=== PATIENT | female | born 1950 | race Caucasian/White ===

== ENCOUNTER 2023-09-08 23:17 | Emergency (ER) | payer OTHER ==
[~2023-09-08] VITALS: Ht 172.7 cm; Wt 77.1 kg
[~2023-09-08 23:17] MED LIST: LEVO500T31 PO
[2023-09-09] VITALS (8 sets, daily range): BP systolic 104–130; BP diastolic 48–60; PULSE 100–107; RESP 14–17; TEMP 97.7–98.9; O2SAT 98
[2023-09-09] MEDS ORDERED: ACETAMINOPHEN 325 MG TAB PO ONE (01:00)
[2023-09-09] MEDS ORDERED: PANTOPRAZOLE 40 MG/10 ML VIAL INJ IV ONE ×2 (01:00→04:15)
[2023-09-09] MEDS ORDERED: SODIUM CHLORIDE 0.9% 1,000 ML IVB ONE (01:00)
[2023-09-09] MEDS ORDERED: ONDANSETRON HCL 4 MG/2 ML VIAL IV ONE (01:00)
[2023-09-09 02:17] LABS: Alanine Aminotransferase 18 U/L (7-40); Albumin 3.4 g/dL (3.2-4.8); Alkaline Phosphatase 44 U/L (46-116); Anion Gap 6 (5-15); Aspartate Aminotransferase 18 U/L (13-40); BUN/Creatinine Ratio 40.2 (10.0-20.0); Blood Alcohol 3.7 mg/dL (<10); Blood Urea Nitrogen 49 mg/dL (9-23); Calcium 9.2 mg/dL (8.7-10.4); Carbon Dioxide 29 mmol/L (20-30); Chloride 106 mmol/L (98-107); Glucose 225 mg/dL (74-106); Lactic Acid w/Reflex 3.8 mmol/L (0.4-2.0); Lipase 152 U/L (12-53); Magnesium 2.2 mg/dL (1.6-2.6); Potassium 4.6 mmol/L (3.5-5.1); Sodium 141 mmol/L (136-145)
[2023-09-09 02:18] LABS: Bilirubin, Total 1.1 mg/dL (0.2-1.0); Total Protein 5.4 g/dL (5.7-8.2)
[2023-09-09 02:25] LABS: Basophils # (auto) 0.1 10 ^3/uL (0-0.2); Eosinophils # (auto) 0.1 10 ^3/uL (0-0.8); Monocytes # (auto) 0.6 10 ^3/uL (0-1.3); Neutrophils # (auto) 5.6 10 ^3/uL (1.6-8.6)
[2023-09-09 02:27] LABS: Basophils % (auto) 1.3 % (0.0-2.0); Eosinophils % (auto) 1.6 % (0.0-7.0); Hematocrit 15.3 % (36.0-46.0); Lymphocytes # (auto) 1.1 10 ^3/uL (0.4-5.4); Lymphocytes % (auto) 14.9 % (10.0-50.0); Mean Corpuscular Hemoglobin 36.1 pg (28.0-32.0); Mean Corpuscular Volume 98.8 fL (80.0-100.0); Monocytes % (auto) 7.9 % (0.0-12.0); Neutrophils % (auto) 74.3 % (37.0-80.0); Nucleated Red Blood Cells % 0.1 %; Red Blood Cells 1.55 10^6/uL (4.0-5.20); Red Cell Distribution Width 14.5 % (11.8-14.3); White Blood Cell 7.6 10^3/uL (4.4-10.8)
[2023-09-09 02:38] LABS: Mean Corpuscular Hgb Conc. 36.5 g/dL (32.0-36.0)
[2023-09-09 02:39] LABS: Hemoglobin 5.6 g/dL (12.2-16.2)
[2023-09-09 02:49] LABS: INR 1.22 (0.9-1.15); Partial Thromboplastin Time 21.5 SEC (24.5-34.5); Prothrombin Time 12.6 sec (9.3-11.8)
[2023-09-09] MEDS ORDERED: SODIUM CHLORIDE 0.9% 2,300 ML IV ONE (03:00)
[2023-09-09] MEDS ORDERED: PANTOPRAZOLE 80 MG in SODIUM CHL 0.9% 100 ML IV ONE (03:00)
[2023-09-09] MEDS ORDERED: VANCOMYCIN PER PHARMACY 0 MG IV SCH (03:00)
[2023-09-09] MEDS ORDERED: ACETAMINOPHEN 325 MG TAB PO PRN (03:00)
[2023-09-09 03:53] LABS: % Iron Saturation 9.8 % (15-50)
[2023-09-09] MEDS ORDERED: VANCOMYCIN 1GM/250ML 250 ML IV ONE ×2 (04:00→12:15)
[2023-09-09 04:14] LABS: INR 1.52 (0.9-1.15); Partial Thromboplastin Time 27.5 SEC (24.5-34.5); Prothrombin Time 15.5 sec (9.3-11.8)
[2023-09-09] MEDS: PIPERACILLIN-TAZOB 3.375GM 100 ML IV SCH ×2 (09:06→13:28)
[2023-09-09 09:45] LABS: Urine Bacteria NONE SEEN /hpf (None Seen); Urine Blood Negative /uL (Negative); Urine Clarity Clear (Clear); Urine Protein, UAD Negative (Negative); Urine Specific Gravity 1.036 (1.001-1.035); Urine Urobilinogen Normal (Negative); Urine WBC <1 /hpf (0 - 5)
[2023-09-09 09:49] LABS: Amphetamine Screen, Urine Neg (NEGATIVE); Barbiturate Scree,Urine Neg (NEGATIVE); Benzodiazephine Screen, Urine Neg (NEGATIVE); Cannabinoid Screen, Urine Neg (NEGATIVE); Cocaine Screen, Urine Neg (NEGATIVE); Opiate Scree,Urine Neg (NEGATIVE); Phencyclidine Screen, Urine Neg (NEGATIVE)
[2023-09-09 09:51] LABS: Urine Color Straw (Yellow)
[2023-09-09 13:43] LABS: Folate (Folic Acid) 18.14 ng/mL (>5.38)
== END 2023-09-09 15:26 | disposition short-term general hospital (02) ==
LOC: EDUNIT# 23:17 → ER 23:17 → EDBD 23:17 → ER 09-09 15:26
DX: K92.2 Gastrointestinal hemorrhage, unspecified (principal); R55 Syncope and collapse; R42 Dizziness and giddiness; D64.9 Anemia, unspecified; A41.9 Sepsis, unspecified organism; C79.9 Secondary malignant neoplasm of unspecified site; E11.65 Type 2 diabetes mellitus with hyperglycemia; I10 Essential (primary) hypertension; E78.5 Hyperlipidemia, unspecified; Z91.148 Patient's other noncompliance with medication regimen for other reason; Z79.899 Other long term (current) drug therapy
CPT/HCPCS: 36415; 36430; 70450; 71045; 71260; 74177; 80053; 80307; 80320; 81001; 82553; 82607; 82728; 82746; 83540; 83550; 83605; 83615; 83690; 83735; 83880; 84443; 84484; 85025; 85045; 85384; 85610; 85730; 86850; 86900; 86901; 86920; 87040; 87086; 93005; 96361; 96365; 96366; 96367; 96375; 99291; C9113; J2405; J2543; J7030; P9016; Q9967

== ENCOUNTER 2023-09-26 00:37 | Inpatient (IN) | payer OTHER ==
[~2023-09-26] VITALS: Ht 162.6 cm; Wt 101.6 kg
[2023-09-26] VITALS (13 sets, daily range): BP systolic 77–104; BP diastolic 40–58; PULSE 104–124; RESP 12–24; TEMP 98–99; O2SAT 93–97
[2023-09-26] MEDS ORDERED: SODIUM CHLORIDE 0.9% 1,000 ML IV ONE ×2 (01:15→11:00)
[2023-09-26] MEDS ORDERED: LIDOCAINE VISCOUS 2% 15ML UD PO ONE (01:30)
[2023-09-26 02:24] LABS: Hematocrit 13.5 % (36.0-46.0); Mean Corpuscular Hemoglobin 31.7 pg (28.0-32.0); Mean Corpuscular Hgb Conc. 33.1 g/dL (32.0-36.0); Mean Corpuscular Volume 95.9 fL (80.0-100.0); Red Blood Cells 1.41 10^6/uL (4.0-5.20); Red Cell Distribution Width 16.9 % (11.8-14.3)
[2023-09-26 02:28] LABS: Chloride 102 mmol/L (98-107); Potassium 3.9 mmol/L (3.5-5.1); Sodium 141 mmol/L (136-145)
[2023-09-26 02:30] LABS: Hemoglobin 4.5 g/dL (12.2-16.2); White Blood Cell 33.6 10^3/uL (4.4-10.8)
[2023-09-26 02:31] LABS: Anion Gap 8 (5-15); Basophils % (manual) 0 (0.0-2.0); Blast Cells 0; Calcium 8.6 mg/dL (8.5-10.1); Carbon Dioxide 31 mmol/L (20-30); Eosinophils % (manual) 0 (0-7); Reactive Lymphocytes 0
[2023-09-26 02:36] LABS: Alkaline Phosphatase 114 U/L (46-116); Glucose 200 mg/dL (74-106)
[2023-09-26 02:38] LABS: Alanine Aminotransferase 21 U/L (7-40); Albumin 2.8 g/dL (3.2-4.8); Aspartate Aminotransferase 26 U/L (13-40); Bilirubin, Total 0.9 mg/dL (0.2-1.0); Total Protein 4.3 g/dL (5.7-8.2)
[2023-09-26 03:40] LABS: Urine Bacteria NONE SEEN /hpf (None Seen); Urine Blood Negative /uL (Negative); Urine Clarity Clear (Clear); Urine Color Yellow (Yellow); Urine Mucus FEW (None Seen); Urine Protein, UAD Negative (Negative); Urine Specific Gravity 1.016 (1.001-1.035); Urine Urobilinogen Normal (Negative); Urine WBC 4 /hpf (0 - 5)
[2023-09-26 04:21] LABS: Anisocytosis Slight; Band Neutrophils % (manual) 11; Lymphocytes % (manual) 4 (10.0-50.0); Metamyelocytes % 1; Monocytes % (manual) 7 (0-12); Myelocytes % 4; Ovalocytes FEW; Platelet Estimate Decreased; Promyelocytes % 2; Stomatocytes Few
[2023-09-26 04:26] LABS: Blood Urea Nitrogen 50 mg/dL (9-23)
[2023-09-26] MEDS ORDERED: NITROGLYCERIN 0.4 MG SL TAB SL PRN (06:15)
[2023-09-26] MEDS ORDERED: MORPHINE SULFATE INJ 2 MG/ml SYRG IV PRN (06:15)
[2023-09-26] MEDS ORDERED: SOD CHL 0.45% 1,000 ML IV ONE (06:45)
[2023-09-26] MEDS ORDERED: PANTOPRAZOLE 80 MG in SODIUM CHL 0.9% 100 ML IV ONE (08:00)
[2023-09-26] MEDS ORDERED: ONDANSETRON HCL 4 MG/2 ML VIAL IV ONE (08:00)
[2023-09-26] MEDS ORDERED: SODIUM CHLORIDE 0.9% 500 ML IV ONE ×2 (08:15→12:15)
[2023-09-26] MEDS ORDERED: OCTREOTIDE ACETATE 100 MCG in SODIUM CHL 0.9% 50 ML IV ONE (08:15)
[2023-09-26] MEDS: PIPERACILLIN-TAZOB 3.375GM 100 ML IV SCH ×3 (08:18→22:44)
[2023-09-26] MEDS: OCTREOTIDE ACETATE 500 MCG in SODIUM CHL 0.9% 99 ML IV SCH ×2 (10:59→18:34)
[2023-09-26] MEDS: NOREPINEPHRINE 8 MG/250ML KIT 250 ML IV SCH (11:15)
[2023-09-26 11:28] LABS: Hematocrit 20.2 % (36.0-46.0); Mean Corpuscular Hemoglobin 30.6 pg (28.0-32.0); Mean Corpuscular Hgb Conc. 33.4 g/dL (32.0-36.0); Mean Corpuscular Volume 91.5 fL (80.0-100.0); Red Blood Cells 2.21 10^6/uL (4.0-5.20); Red Cell Distribution Width 14.3 % (11.8-14.3)
[2023-09-26] MEDS: PANTOPRAZOLE 40mg/50ML NS AE 50 ML IV SCH ×3 (11:47→19:46)
[2023-09-26 11:50] LABS: INR 1.36 (0.9-1.15)
[2023-09-26 11:54] LABS: Hemoglobin 6.8 g/dL (12.2-16.2); White Blood Cell 38.6 10^3/uL (4.4-10.8)
[2023-09-26 11:55] LABS: Basophils % (manual) 0 (0.0-2.0); Blast Cells 0; Eosinophils % (manual) 0 (0-7); Myelocytes % 0; Promyelocytes % 0
[2023-09-26 12:04] LABS: Alanine Aminotransferase 27 U/L (7-40); Albumin 2.5 g/dL (3.2-4.8); Alkaline Phosphatase 99 U/L (46-116); Anion Gap 11 (5-15); Aspartate Aminotransferase 32 U/L (13-40); BUN/Creatinine Ratio 48.3 (10.0-20.0); Bilirubin, Total 1.1 mg/dL (0.2-1.0); Calcium 8.1 mg/dL (8.5-10.1); Carbon Dioxide 28 mmol/L (20-30); Chloride 103 mmol/L (98-107); Glucose 207 mg/dL (74-106); Potassium 4.7 mmol/L (3.5-5.1); Sodium 142 mmol/L (136-145); Total Protein 3.9 g/dL (5.7-8.2)
[2023-09-26 12:17] LABS: Blood Urea Nitrogen 71 mg/dL (9-23)
[2023-09-26 13:15] LABS: Lymphocytes % (manual) 7 (10.0-50.0)
[2023-09-26 13:17] LABS: Band Neutrophils % (manual) 6; Metamyelocytes % 2; Monocytes % (manual) 5 (0-12)
[2023-09-26 13:18] LABS: Platelet Estimate Decreased; RBC Morphology Normal
[2023-09-26 13:33] LABS: Reactive Lymphocytes 0
[2023-09-26 18:59] LABS: Hematocrit 23.8 % (36.0-46.0)
[2023-09-26 22:54] LABS: Hemoglobin 8.5 g/dL (12.2-16.2)
[2023-09-26 22:57] LABS: Hematocrit 25.1 % (36.0-46.0)
[2023-09-27] VITALS (7 sets, daily range): BP systolic 122–137; BP diastolic 61–74; PULSE 103–109; RESP 16–20; TEMP 97.8–98.4; O2SAT 91–96
[2023-09-27] MEDS: PANTOPRAZOLE 40mg/50ML NS AE 50 ML IV SCH ×4 (00:17→15:00)
[2023-09-27 02:16] LABS: Hematocrit 24.3 % (36.0-46.0); Hemoglobin 8.1 g/dL (12.2-16.2)
[2023-09-27] MEDS ORDERED: DEX4T PO (03:16)
[2023-09-27] MEDS: OCTREOTIDE ACETATE 500 MCG in SODIUM CHL 0.9% 99 ML IV SCH ×2 (03:50→15:00)
[2023-09-27] MEDS: PIPERACILLIN-TAZOB 3.375GM 100 ML IV SCH ×3 (05:21→21:44)
[2023-09-27] MEDS: NOREPINEPHRINE 8 MG/250ML KIT 250 ML IV SCH (08:14)
[2023-09-27 09:45] LABS: Hemoglobin 8.2 g/dL (12.2-16.2)
[2023-09-27 09:47] LABS: Hematocrit 24.3 % (36.0-46.0)
[2023-09-27 16:04] LABS: Hemoglobin 8.1 g/dL (12.2-16.2)
[2023-09-27 16:06] LABS: Hematocrit 24.5 % (36.0-46.0)
[2023-09-27] MEDS: PANTOPRAZOLE 40 MG/10 ML VIAL INJ IV SCH (21:44)
[2023-09-28] VITALS (14 sets, daily range): BP systolic 126–152; BP diastolic 64–76; PULSE 82–111; RESP 16–19; TEMP 97.5–98.6; O2SAT 96–99
[2023-09-28] MEDS: PIPERACILLIN-TAZOB 3.375GM 100 ML IV SCH ×2 (05:58→13:30)
[2023-09-28 11:24] LABS: Basophils # (auto) 0.1 10 ^3/uL (0-0.2); Basophils % (auto) 0.5 % (0.0-2.0); Eosinophils # (auto) 0 10 ^3/uL (0-0.8); Hemoglobin 7.5 g/dL (12.2-16.2)
[2023-09-28 11:26] LABS: Hematocrit 22.5 % (36.0-46.0); Lymphocytes # (auto) 1.1 10 ^3/uL (0.4-5.4); Lymphocytes % (auto) 5.4 % (10.0-50.0); Mean Corpuscular Hemoglobin 30.3 pg (28.0-32.0); Mean Corpuscular Hgb Conc. 33.3 g/dL (32.0-36.0); Mean Corpuscular Volume 91.2 fL (80.0-100.0); Monocytes # (auto) 1.4 10 ^3/uL (0-1.3); Monocytes % (auto) 6.9 % (0.0-12.0); Neutrophils # (auto) 17.5 10 ^3/uL (1.6-8.6); Neutrophils % (auto) 87.2 % (37.0-80.0); Nucleated Red Blood Cells % 0.8 %; Red Blood Cells 2.46 10^6/uL (4.0-5.20); Red Cell Distribution Width 15.3 % (11.8-14.3)
[2023-09-28 11:39] LABS: Alanine Aminotransferase 25 U/L (7-40); Albumin 2.8 g/dL (3.2-4.8); Alkaline Phosphatase 95 U/L (46-116); Anion Gap 10 (5-15); Aspartate Aminotransferase 19 U/L (13-40); BUN/Creatinine Ratio 45.5 (10.0-20.0); Calcium 8.5 mg/dL (8.5-10.1); Carbon Dioxide 28 mmol/L (20-30); Chloride 111 mmol/L (98-107); Glucose 179 mg/dL (74-106); Potassium 3.6 mmol/L (3.5-5.1)
[2023-09-28 11:40] LABS: Bilirubin, Total 1.3 mg/dL (0.2-1.0); Total Protein 4.4 g/dL (5.7-8.2)
[2023-09-28 11:41] LABS: Sodium 149 mmol/L (136-145)
[2023-09-28 11:42] LABS: Blood Urea Nitrogen 90 mg/dL (9-23)
[2023-09-28] MEDS: PANTOPRAZOLE 40 MG/10 ML VIAL INJ IV SCH ×2 (11:55→21:35)
[2023-09-28] MEDS ORDERED: PIPERACILLIN-TAZOB 2.25GM 50 ML IV SCH (18:00)
[2023-09-28 20:07] LABS: Hematocrit 25.8 % (36.0-46.0); Hemoglobin 8.5 g/dL (12.2-16.2)
[2023-09-28] MEDS: PIPERACILLIN-TAZOB 2.25GM 50 ML IV SCH (21:35)
[2023-09-29] VITALS (8 sets, daily range): BP systolic 136–151; BP diastolic 55–80; PULSE 84–100; RESP 18–20; TEMP 96.6–98.2; O2SAT 98–100
[2023-09-29] MEDS: PIPERACILLIN-TAZOB 2.25GM 50 ML IV SCH ×4 (02:46→21:57)
[2023-09-29] MEDS: PANTOPRAZOLE 40 MG/10 ML VIAL INJ IV SCH ×2 (10:53→21:57)
[2023-09-29 11:32] LABS: Basophils # (auto) 0.1 10 ^3/uL (0-0.2); Basophils % (auto) 0.8 % (0.0-2.0); Eosinophils # (auto) 0 10 ^3/uL (0-0.8); Eosinophils % (auto) 0.1 % (0.0-7.0); Hemoglobin 8.5 g/dL (12.2-16.2); Lymphocytes # (auto) 0.8 10 ^3/uL (0.4-5.4); Lymphocytes % (auto) 6.7 % (10.0-50.0); Mean Corpuscular Hemoglobin 29.7 pg (28.0-32.0); Mean Corpuscular Hgb Conc. 32.8 g/dL (32.0-36.0); Mean Corpuscular Volume 90.6 fL (80.0-100.0); Monocytes # (auto) 1.1 10 ^3/uL (0-1.3); Monocytes % (auto) 8.9 % (0.0-12.0); Neutrophils # (auto) 10.2 10 ^3/uL (1.6-8.6); Neutrophils % (auto) 83.5 % (37.0-80.0); Nucleated Red Blood Cells % 0.4 %; Red Blood Cells 2.87 10^6/uL (4.0-5.20); Red Cell Distribution Width 15.4 % (11.8-14.3); White Blood Cell 12.2 10^3/uL (4.4-10.8)
[2023-09-29 11:52] LABS: Alanine Aminotransferase 25 U/L (7-40); Alkaline Phosphatase 81 U/L (46-116); Anion Gap 7 (5-15); Aspartate Aminotransferase 17 U/L (13-40); BUN/Creatinine Ratio 40.2 (10.0-20.0); Calcium 8.2 mg/dL (8.7-10.4); Carbon Dioxide 30 mmol/L (20-30); Chloride 114 mmol/L (98-107); Glucose 173 mg/dL (74-106); Potassium 3.3 mmol/L (3.5-5.1); Sodium 151 mmol/L (136-145)
[2023-09-29 11:53] LABS: Bilirubin, Total 1.8 mg/dL (0.2-1.0); Total Protein 4.6 g/dL (5.7-8.2)
[2023-09-29 11:58] LABS: Blood Urea Nitrogen 70 mg/dL (9-23)
[2023-09-29] MEDS ORDERED: PANT40TA2 PO (18:16)
[2023-09-29 18:34] LABS: Hematocrit 24.9 % (36.0-46.0); Hemoglobin 8.2 g/dL (12.2-16.2)
[2023-09-29] MEDS: SOD CHL 0.45% WITH 20MEQ KCL 1,000 ML IV SCH (20:26)
[2023-09-30] MEDS: PIPERACILLIN-TAZOB 2.25GM 50 ML IV SCH ×4 (02:58→20:25)
[2023-09-30 05:00] VITALS: BP 124/73; PULSE 86; RESP 20; TEMP 97.7; O2SAT 98
[2023-09-30 08:30] VITALS: BP 150/62; PULSE 93; PULSE 98; RESP 16; RESP 20; TEMP 97.9; O2SAT 98
[2023-09-30] MEDS: SOD CHL 0.45% WITH 20MEQ KCL 1,000 ML IV SCH (09:03)
[2023-09-30] MEDS: PANTOPRAZOLE 40 MG/10 ML VIAL INJ IV SCH ×2 (09:04→21:54)
[2023-09-30 10:01] LABS: Alanine Aminotransferase 22 U/L (7-40); Albumin 3.2 g/dL (3.2-4.8); Alkaline Phosphatase 75 U/L (46-116); Anion Gap 4 (5-15); Aspartate Aminotransferase 20 U/L (13-40); BUN/Creatinine Ratio 38.4 (10.0-20.0); Bilirubin, Total 1.8 mg/dL (0.2-1.0); Calcium 8.6 mg/dL (8.5-10.1); Carbon Dioxide 30 mmol/L (20-30); Chloride 117 mmol/L (98-107); Glucose 162 mg/dL (74-106); Potassium 3.3 mmol/L (3.5-5.1); Sodium 151 mmol/L (136-145); Total Protein 4.8 g/dL (5.7-8.2)
[2023-09-30 10:11] LABS: Basophils # (auto) 0 10 ^3/uL (0-0.2); Basophils % (auto) 0.4 % (0.0-2.0); Eosinophils # (auto) 0 10 ^3/uL (0-0.8); Eosinophils % (auto) 0.1 % (0.0-7.0); Hematocrit 25.3 % (36.0-46.0); Hemoglobin 8.7 g/dL (12.2-16.2); INR 1.28 (0.9-1.15); Lymphocytes # (auto) 0.8 10 ^3/uL (0.4-5.4); Lymphocytes % (auto) 7.5 % (10.0-50.0); Mean Corpuscular Hemoglobin 31.8 pg (28.0-32.0); Mean Corpuscular Hgb Conc. 34.5 g/dL (32.0-36.0); Mean Corpuscular Volume 92.3 fL (80.0-100.0); Monocytes # (auto) 0.8 10 ^3/uL (0-1.3); Monocytes % (auto) 7.4 % (0.0-12.0); Neutrophils # (auto) 8.7 10 ^3/uL (1.6-8.6); Neutrophils % (auto) 84.6 % (37.0-80.0); Nucleated Red Blood Cells % 0.1 %; Prothrombin Time 13.2 sec (9.3-11.8); Red Blood Cells 2.75 10^6/uL (4.0-5.20); Red Cell Distribution Width 15.9 % (11.8-14.3); White Blood Cell 10.3 10^3/uL (4.4-10.8)
[2023-09-30 10:20] LABS: Blood Urea Nitrogen 56 mg/dL (9-23)
[2023-09-30 13:30] VITALS: BP 105/72; PULSE 85; RESP 20; TEMP 97.7; O2SAT 97
[2023-09-30] MEDS ORDERED: POTASSIUM EFFERVESENT TAB 25 MEQ GT ONE (13:30)
[2023-09-30] MEDS ORDERED: DEXTROSE (50%) 50ML SYRG IV PRN (14:45)
[2023-09-30] MEDS: D5W/SOD CHL 0.45%/KCL 20MEQ 1,000 ML IV SCH (15:55)
[2023-09-30 16:30] VITALS: BP 146/61; PULSE 79; RESP 17; TEMP 97.9; O2SAT 97
[2023-09-30] MEDS: ACCU-CHEK COMFORT CURVE STRIP VI SCH (17:40)
[2023-09-30] MEDS: InsuLIN REG 1unit/0.01ml Soln (100units/ml) SC SCH (17:41)
[2023-09-30 17:55] LABS: Hematocrit 23.8 % (36.0-46.0)
[2023-09-30 20:00] VITALS: PULSE 80; RESP 16; O2SAT 98
[2023-09-30 22:03] VITALS: BP_SYST 140; BP_SYST 170; BP_DIAS 62; BP_DIAS 64; PULSE 73; PULSE 80; RESP 16; RESP 18; TEMP 97.7; TEMP 98.2; O2SAT 96; O2SAT 98
[2023-10-01] VITALS (7 sets, daily range): BP systolic 121–147; BP diastolic 59–73; PULSE 74–91; RESP 16–20; TEMP 96.8–98.2; O2SAT 94–100
[2023-10-01] MEDS: ACCU-CHEK COMFORT CURVE STRIP VI SCH ×5 (00:44→23:09)
[2023-10-01] MEDS: PIPERACILLIN-TAZOB 2.25GM 50 ML IV SCH ×3 (01:51→15:35)
[2023-10-01] MEDS: D5W/SOD CHL 0.45%/KCL 20MEQ 1,000 ML IV SCH (05:16)
[2023-10-01] MEDS: InsuLIN REG 1unit/0.01ml Soln (100units/ml) SC SCH ×5 (05:16→23:09)
[2023-10-01] MEDS: PANTOPRAZOLE 40 MG/10 ML VIAL INJ IV SCH ×2 (09:15→22:27)
[2023-10-01 10:05] LABS: Basophils # (auto) 0 10 ^3/uL (0-0.2); Basophils % (auto) 0.3 % (0.0-2.0); Eosinophils # (auto) 0 10 ^3/uL (0-0.8); Eosinophils % (auto) 0.2 % (0.0-7.0); Hematocrit 21.9 % (36.0-46.0); Hemoglobin 7.5 g/dL (12.2-16.2); Lymphocytes # (auto) 0.7 10 ^3/uL (0.4-5.4); Lymphocytes % (auto) 9.4 % (10.0-50.0); Mean Corpuscular Hemoglobin 31.7 pg (28.0-32.0); Mean Corpuscular Hgb Conc. 34.2 g/dL (32.0-36.0); Mean Corpuscular Volume 92.6 fL (80.0-100.0); Monocytes # (auto) 0.6 10 ^3/uL (0-1.3); Neutrophils # (auto) 6.5 10 ^3/uL (1.6-8.6); Neutrophils % (auto) 82.1 % (37.0-80.0); Nucleated Red Blood Cells % 0.2 %; Red Blood Cells 2.36 10^6/uL (4.0-5.20); Red Cell Distribution Width 15.8 % (11.8-14.3); White Blood Cell 7.9 10^3/uL (4.4-10.8)
[2023-10-01 10:09] LABS: Alanine Aminotransferase 21 U/L (7-40); Albumin 2.8 g/dL (3.2-4.8); Alkaline Phosphatase 62 U/L (46-116); Anion Gap 6 (5-15); Aspartate Aminotransferase 20 U/L (13-40); BUN/Creatinine Ratio 28.1 (10.0-20.0); Bilirubin, Total 1.7 mg/dL (0.2-1.0); Calcium 8.3 mg/dL (8.5-10.1); Carbon Dioxide 29 mmol/L (20-30); Chloride 118 mmol/L (98-107); Glucose 136 mg/dL (74-106); Potassium 3.4 mmol/L (3.5-5.1); Sodium 153 mmol/L (136-145); Total Protein 4.3 g/dL (5.7-8.2)
[2023-10-01 10:36] LABS: Blood Urea Nitrogen 36 mg/dL (9-23)
[2023-10-01 18:17] LABS: Hematocrit 23.1 % (36.0-46.0); Hemoglobin 7.8 g/dL (12.2-16.2)
[2023-10-02 05:00] VITALS: BP 146/75; PULSE 74; RESP 21; TEMP 98.3; O2SAT 94
[2023-10-02] MEDS: ACCU-CHEK COMFORT CURVE STRIP VI SCH (05:18)
[2023-10-02] MEDS: InsuLIN REG 1unit/0.01ml Soln (100units/ml) SC SCH (05:18)
[2023-10-02 08:00] VITALS: PULSE 78; RESP 18; O2SAT 98
[2023-10-02] MEDS: PANTOPRAZOLE 40 MG/10 ML VIAL INJ IV SCH (08:54)
[2023-10-02 09:00] VITALS: BP 119/57; PULSE 78; RESP 17; TEMP 97.2; O2SAT 98
== END 2023-10-02 11:40 | disposition home health service (06) | DRG 374 ==
LOC: ER 00:37 → EDBD 00:37 → TELE 06:07 → TELE-WESTW 09-27 03:23 → OBSVTOIN 09-27 18:03 → WEST WING 09-27 18:04
PROVIDERS: ADMIT Internal Medicine; ATTEND Student in an Organized Health Care Education/Training Program
PROC: 30233N1 Transfusion of Nonautologous Red Blood Cells into Peripheral Vein, Percutaneous Approach (ICD-10-PCS; principal; 2023-09-26)
DX: C15.9 Malignant neoplasm of esophagus, unspecified (principal); R57.1 Hypovolemic shock; K92.2 Gastrointestinal hemorrhage, unspecified; N17.9 Acute kidney failure, unspecified; I13.0 Hypertensive heart and chronic kidney disease with heart failure and stage 1 through stage 4 chronic kidney disease, or unspecified chronic kidney disease; J96.10 Chronic respiratory failure, unspecified whether with hypoxia or hypercapnia; C79.89 Secondary malignant neoplasm of other specified sites; K80.20 Calculus of gallbladder without cholecystitis without obstruction; G62.9 Polyneuropathy, unspecified; J44.9 Chronic obstructive pulmonary disease, unspecified; E78.5 Hyperlipidemia, unspecified; E27.8 Other specified disorders of adrenal gland; N18.9 Chronic kidney disease, unspecified; I50.9 Heart failure, unspecified; T45.1X5A Adverse effect of antineoplastic and immunosuppressive drugs, initial encounter; E11.22 Type 2 diabetes mellitus with diabetic chronic kidney disease; Z93.1 Gastrostomy status; Z80.1 Family history of malignant neoplasm of trachea, bronchus and lung; Z80.6 Family history of leukemia; Z79.84 Long term (current) use of oral hypoglycemic drugs; Y92.89 Other specified places as the place of occurrence of the external cause; D63.0 Anemia in neoplastic disease
CPT/HCPCS: 36415; 36430; 71045; 74176; 74181; 78226; 80053; 81001; 82248; 82270; 82962; 83605; 83880; 84295; 84484; 85007; 85014; 85018; 85025; 85027; 85610; 86850; 86900; 86901; 86920; 87040; 87081; 93005; 96361; 96365; 96367; 96375; 97110; 97116; 97163; 97530; 99291; C9113; G0378; J2405; J2543

== ENCOUNTER 2023-10-08 11:38 | Emergency (ER) | payer OTHER ==
[~2023-10-08] VITALS: Ht 167.6 cm; Wt 75.0 kg
[~2023-10-08 11:38] MED LIST changes: -LEVO500T31 PO; +PANT40TA2 PO
[2023-10-08] MEDS ORDERED: GASTROGRAFIN 30 ML SOL ONE (13:45)
[2023-10-09 00:35] VITALS: BP 116/74; PULSE 96; RESP 20; TEMP 98.1; O2SAT 100
== END 2023-10-09 01:27 | disposition short-term general hospital (02) ==
LOC: ER 11:38
DX: K94.13 Enterostomy malfunction (principal); I11.0 Hypertensive heart disease with heart failure; I50.9 Heart failure, unspecified; J44.9 Chronic obstructive pulmonary disease, unspecified; E11.9 Type 2 diabetes mellitus without complications; K21.9 Gastro-esophageal reflux disease without esophagitis; Z79.899 Other long term (current) drug therapy
CPT/HCPCS: 74018; 99285; Q9963